=== PATIENT | male | born 1945 | race Hispanic/Latino ===

== ENCOUNTER 2018-09-03 14:16 | Emergency (ER) | payer MEDICARE, BC ==
[~2018-09-03] VITALS: Ht 172.7 cm; Wt 77.1 kg
--- OUTSIDE RECORDS SUMMARY | 2018-09-03 14:18 | XMS REPORT ---
Author Author [facility] Address Unknown Phone Unavailable Care Team Providers Care Manager Game Name Role Phone Unavailable Unavailable Problems This patient has no known problems. Allergies, Adverse Reactions, Alerts This patient has no known allergies or adverse reactions. Medications This patient has no known medications.
== END 2018-09-03 16:00 | disposition left against medical advice (07) ==
LOC: ER 14:16
DX: I10 Essential (primary) hypertension (principal)
CPT/HCPCS: 99282